=== PATIENT | female | born 1940 | race Caucasian/White ===

== ENCOUNTER 2016-05-25 14:15 | Outpatient (CLI) | payer MEDICARE, OTHER | END 2016-05-25 14:16 | disposition home or self-care (01) | DX: D50.9 Iron deficiency anemia, unspecified (principal) ==

== ENCOUNTER 2016-12-30 05:22 | Outpatient (CLI) | payer MEDICARE, OTHER | END 2016-12-30 05:23 | disposition critical access hospital (66) | LOC: EMS 05:22 | PROVIDERS: ATTEND Surgery | DX: R10.9 Unspecified abdominal pain (principal) | CPT/HCPCS: A0425; A0427 ==

== ENCOUNTER 2016-12-30 05:39 | Inpatient (IN) | payer MEDICARE, OTHER ==
[2016-12-30] MEDS ORDERED: SODIUM CHLORIDE FLUSH 0.9% 10 ML SYRINGE IVP ONE (05:50)
--- NOTE | 2016-12-30 06:00 | ED Physician Documentation ---
PD HPI ABD PAIN - Stated complaint Stated Complaint: ABD PAIN - Chief complaint Chief Complaint: Abd Pain - History obtained from History obtained from: Patient, EMS - History of Present Illness Timing - onset: Enter time (0900), Yesterday Timing - duration: Days (1) Timing - details: Abrupt onset, Still present Quality: Sharp, Pain Location: Epigastric Improved by: Laying still Associated symptoms: Nausea, Vomiting. No: Fever, Diarrhea, Constipation, Chest pain, Dizzy Similar symptoms before: Has not had sx before Recently seen: Other (The patient has had a recent home health visit and she has had a recent CT chest, abd and head for survelance.) - Additional information Additional information: 76-year-old female with history of atrial fibrillation on Coumadin and a history of angiosarcoma of the scalp has Developed acute abdominal pain nausea and vomiting beginning at 9 AM yesterday morning. She felt she ate some grapes that were unwashed and was concerned that might be the cause of her symptoms. She felt she might have food poisoning but the symptoms have not resolved. Pain is primary complaint. She denies the use of ibuprofen or Aleve and states that she drinks only rarely and not recently. Review of Systems Constitutional: reports: Chills, Sweats. denies: Fever, Myalgias Eyes: denies: Decreased vision Ears: denies: Ear pain Nose: denies: Rhinorrhea / runny nose, Congestion Throat: denies: Sore throat Cardiac: denies: Chest pain / pressure, Palpitations Respiratory: reports: Cough (post nasal drip). denies: Dyspnea GI: reports: Abdominal Pain, Nausea, Vomiting (once), Diarrhea (yesterday X 1) : denies: Dysuria, Frequency, Incontinent Skin: denies: Rash, Lesions Musculoskeletal: denies: Neck pain, Back pain, Extremity pain Neurologic: reports: Generalized weakness. denies: Focal weakness, Numbness PD PAST MEDICAL HISTORY - Present Medications Home Medications: Ambulatory Orders Medication Instructions Recorded Confirmed Albuterol Sulfate [Proair Hfa 2 puffs ORAL Q4HR PRN 12/04/16 12/30/16 Inhaler] Atenolol 25 mg PO BID 12/04/16 12/04/16 Cholecalciferol (Vitamin D3) 1 tab ORAL DAILY 12/04/16 12/30/16 [Vitamin D3] Furosemide 40 mg PO DAILY 12/04/16 12/04/16 Iron,Carbonyl [Iron Chews] 15 mg PO BID 12/04/16 12/30/16 Levothyroxine [Synthroid] 125 mcg PO QDAC 12/04/16 12/30/16 Lisinopril 1 tab ORAL DAILY 12/04/16 12/04/16 Nitroglycerin 1 tab ORAL PRN PRN 12/04/16 12/30/16 Potassium Chloride [Klor-Con 10] 1 tab ORAL DAILY 12/04/16 12/30/16 amLODIPine [Norvasc] 2 tab ORAL DAILY 12/04/16 12/30/16 oxyCODONE [Roxicodone] 10 mg PO Q6HR PRN 12/04/16 12/30/16 - Allergies Allergies/Adverse Reactions: Allergies Allergy/AdvReac Type Severity Reaction Status Date / Time acetaminophen [From Percocet] Allergy Hives Verified 12/30/16 06:00 aspirin Allergy Hives Verified 12/30/16 06:00 PD ED PE NORMAL - Vitals Vital signs reviewed: Yes (hypertensive) - General General: No acute distress, Well developed/nourished - HEENT HEENT: PERRL, EOMI, Other (The head is covered by guaze bandaging. ) - Neck Neck: Supple, no meningeal sign, No bony TTP - Cardiac Cardiac: Other (irregularly irregular with 2/6 holosystolic murmer at LSB) - Respiratory Respiratory: No respiratory distress, Other (rhonchi in the right base. ) - Abdomen Abdomen: Soft, Other (mild epigastric tenderness. ) - Back Back: No CVA TTP, No spinal TTP - Derm Derm: Normal color, No rash - Extremities Extremities: No deformity, No edema - Neuro Neuro: Alert and oriented X 3, movie editor 2-12 intact, No motor deficit, No sensory deficit, Normal speech - Psych Psych: Normal mood, Normal affect Results - Vitals Vitals: Vital Signs - 24 hr 12/30/16 05:43 Temperature 36.4 C L Heart Rate 97 Respiratory 16 Rate Blood Pressure 149/69 H O2 Saturation 100 Oxygen O2 Source Room air - EKG (time done) 0626 Rate: Rate (enter#) (100) Rhythm: Atrial fibrillation, Other (PVC's) Intervals: RBBB (incomplete) Ischemia: ST depression Compare to prior EKG: Old EKG unavailable Computer interpretation: Agree with computer - Labs Labs: Laboratory Tests 12/30/16 12/30/16 12/30/16 06:20 06:52 06:52 WBC 19.0 H RBC 4.22 Hgb 12.7 Hct 38.9 MCV 92.0 MCH 30.0 MCHC 32.6 RDW 15.4 H Plt Count 303 MPV 7.1 L PT 12.9 H INR 1.1 Sodium Potassium Chloride Carbon Dioxide Anion Gap BUN Creatinine Estimated GFR (MDRD) Glucose Calcium Total Bilirubin AST ALT Alkaline Phosphatase Troponin I Total Protein Albumin Globulin Albumin/Globulin Ratio Lipase Urine Color YELLOW Urine Clarity CLEAR Urine pH 5.5 Ur Specific Dolph 1.025 Urine Protein TRACE Urine Glucose (UA) >=1000 H Urine Ketones 15 H Urine Occult Blood SMALL H Urine Nitrite NEGATIVE Urine Bilirubin NEGATIVE Urine Urobilinogen 0.2 (NORMAL) Ur Leukocyte Esterase NEGATIVE Urine RBC 0-5 Urine WBC 0-3 Ur Squamous Epith Cells MOD Squamous H Urine Bacteria Few Ur Microscopic Review INDICATED Urine Culture Comments NOT INDICATED 12/30/16 12/30/16 06:52 06:52 WBC RBC Hgb Hct MCV MCH MCHC RDW Plt Count MPV PT INR Sodium 139 Potassium 2.9 L Chloride 105 Carbon Dioxide 19 L Anion Gap 15.0 H BUN 16 Creatinine 0.9 Estimated GFR (MDRD) 61 L Glucose 293 H Calcium 9.9 Total Bilirubin 0.7 AST 33 ALT 14 Alkaline Phosphatase 61 Troponin I < 0.04 Total Protein 8.6 H Albumin 5.1 Globulin 3.5 Albumin/Globulin Ratio 1.5 Lipase 24 Urine Color Urine Clarity Urine pH Ur Specific Dolph Urine Protein Urine Glucose (UA) Urine Ketones Urine Occult Blood Urine Nitrite Urine Bilirubin Urine Urobilinogen Ur Leukocyte Esterase Urine RBC Urine WBC Ur Squamous Epith Cells Urine Bacteria Ur Microscopic Review Urine Culture Comments Procedures - IVC sono (time) 0720 Bedside IVC sono: IVC measures (cm) (1.60), Euvolemia PD MEDICAL DECISION MAKING - ED course Complexity details: reviewed old records, reviewed results, re-evaluated patient , considered differential, d/w patient ED course: 76 y/o female with a history of angiosarcoma of the scalp has developed epigastric abdominal pain without tenderness. She was administered a GI cocktail without relief. She has rhonchi on exam and CXR confirms infiltrate in the right base that was not present on a CT done last month. She has had chills and sweats, has elevated WBC but is not hypoxic. She does have the abdominal pain and this is a 9/10. She is also hypokalemic and admission for treatment is prudent. The hospitalist is consulted in the case. Departure - Departure Disposition: 66 [facility] DC/Xfer Clinical Impression: Hypokalemia Abdominal pain Qualifiers: Abdominal location: epigastric Qualified Code(s): R10.13 - Epigastric pain Pneumonia Qualifiers: Pneumonia type: due to unspecified organism Laterality: right Lung location: lower lobe of lung Qualified Code(s): J18.1 - Lobar pneumonia, unspecified organism Condition: Stable
[2016-12-30] MEDS ORDERED: LIDOCAINE VISCOUS 2% 15 ML UDC MM STA (06:04)
[2016-12-30] MEDS ORDERED: MAG HYDROX/AL HYDROX/SIMETH 30 ML UDC PO STA (06:04)
[2016-12-30] MEDS ORDERED: LIDOCAINE VISCOUS 2% 15 ML UDC MM ONE (06:22)
[2016-12-30] MEDS ORDERED: MAG HYDROX/AL HYDROX/SIMETH 30 ML UDC ONE (06:23)
[2016-12-30 07:02] LABS: BILIRUBIN,URINE NEGATIVE (NEGATIVE); PH,URINE 5.5 PH (5.0-7.5)
[2016-12-30 07:04] LABS: BASOPHILS # (AUTO) 0.1 10^3/uL (0.0-0.1); BASOPHILS % (AUTO) 0.3 %; HCT - HEMATOCRIT 38.9 % (37.0-47.0); HGB - HEMOGLOBIN 12.7 g/dL (12.0-16.0); LYMPHOCYTES # (AUTO) 0.4 10^3/uL (1.5-3.5); LYMPHOCYTES % (AUTO) 2.1 %; MEAN CORPUSCULAR HGB CONC 32.6 g/dL (32.0-36.0); MEAN PLATELET VOLUME 7.1 fL (7.9-10.8); MONOCYTES # (AUTO) 0.7 10^3/uL (0.0-1.0); MONOCYTES % (AUTO) 3.8 %; NEUTROPHILS # (AUTO) 17.9 10^3/uL (1.5-6.6); NEUTROPHILS % (AUTO) 93.8 %; NUCLEATED RED BLOOD CELLS AUTO 0.1 /100WBC; RED BLOOD COUNT 4.22 10^6/uL (4.20-5.40); RED CELL DISTRIBUTION WIDTH 15.4 % (12.0-15.0)
[2016-12-30 07:05] LABS: UA w/ MICROSCOPIC CHARGE YES
[2016-12-30 07:07] LABS: INR 1.1 (0.8-1.2); PT - PROTHROMBIN TIME 12.9 secs (9.9-12.6)
[2016-12-30 07:09] LABS: UR CULTURE IF IND NOT INDICATED; WBC,URINE 0-3 /HPF (0-5)
[2016-12-30 07:14] LABS: ALBUMIN/GLOBULIN RATIO 1.5 (1.0-2.2); BILIRUBIN,TOTAL 0.7 mg/dL (0.2-1.0); CALCIUM 9.9 mg/dL (8.5-10.3); CREATININE 0.9 mg/dL (0.4-1.0); POTASSIUM 2.9 mmol/L (3.5-5.0); TOTAL PROTEIN 8.6 g/dL (6.7-8.2)
[2016-12-30] MEDS ORDERED: POTASSIUM CHLOR 10 MEQ/100 ML 100 ML IV ONE ×2 (07:16→07:37)
[2016-12-30] MEDS ORDERED: POTASSIUM BICARB 25 MEQ TABLET PO STA (07:16)
[2016-12-30] MEDS ORDERED: POTASSIUM BICARB 25 MEQ TABLET PO ONE (07:27)
[2016-12-30 07:29] LABS: NP AUTO DIFFERENTIAL? NO; NP MAN DIFFERENTIAL? YES
[2016-12-30] MEDS ORDERED: oxyCODONE 5 MG TABLET PO STA (07:29)
[2016-12-30 07:31] LABS: PLATELET ESTIMATE, MANUAL NORMAL (130-450,000) (NORMAL); PLATELET MORPHOLOGY NORMAL APPEARANCE (NORMAL)
[2016-12-30] MEDS ORDERED: oxyCODONE 5 MG TABLET ONE (07:35)
--- NOTE | 2016-12-30 07:43 | XRAY Preliminary Report ---
Exam: XR Chest 2 View PA/LAT IMPRESSION: Small right basilar airspace disease may be due to atelectasis, aspiration, and/or pneumo efra. Small right-sided pleural effusion. [facility] SITE ID: [id number]
--- NOTE | 2016-12-30 07:46 | XRAY Report ---
EXAM: CHEST RADIOGRAPHY EXAM DATE: 12/30/2016 07:18 AM. CLINICAL HISTORY: No right-sided abnormal breath sounds. COMPARISON: CT abdomen and pelvis 11/22/2016 TECHNIQUE: 2 views. FINDINGS: Lungs/Pleura: There is small right basilar airspace disease. There is a small right-sided pleural eff usion. Left lung base pleural thickening and scarring is again noted. Nonspecific mild bilateral apic al pleural thickening/scarring, left greater than right. Mediastinum: At least mild enlargement of the cardiac silhouette. Other: There is degenerative change about the shoulder bilaterally. Prior median sternotomy. IMPRESSION: Small right basilar airspace disease may be due to atelectasis, aspiration, and/or pneumo efra. Small right-sided pleural effusion. [facility] Referring Provider Line: [phone] SITE ID: [id number]
[2016-12-30] MEDS ORDERED: MORPHINE 2 MG/ML CARPUJECT IVP PRN (09:08)
[2016-12-30] MEDS ORDERED: ZOLPIDEM 5 MG TABLET PO PRN (09:08)
[2016-12-30] MEDS ORDERED: SODIUM CHLORIDE 0.9% 500 ML IV ONE (09:30)
[2016-12-30 09:43] LABS: HEMOGLOBIN A1C 0.57 g/dL
[2016-12-30] MEDS ORDERED: NS W/20 MEQ KCL 1,000 ML IV SCH ×2 (10:00→12:00)
[2016-12-30] MEDS ORDERED: cefTRIAXone 1 GM VIAL IVP SCH (10:00)
[2016-12-30] MEDS ORDERED: ENOXAPARIN 40 MG/0.4 ML SYRINGE SUBQ SCH (10:00)
[2016-12-30] MEDS ORDERED: SODIUM CHLORIDE 0.9% 1,000 ML IV SCH (10:00)
[2016-12-30] MEDS ORDERED: AZITHROMYCIN INJ 500 MG in SODIUM CHLORIDE 0.9% 250 ML IV SCH (10:00)
[2016-12-30] MEDS ORDERED: IPRATROPIUM/ALBUTEROL 3 ML NEB INH PRN (11:00)
[2016-12-30 11:16] LABS: ABG ANALYSIS TIME 1105; ABG BASE EXCESS -5.3 mmol/L (-2.0-3.0); ABG HCO3 19.1 mmol/L (22.0-26.0); ABG OXYGEN SATURATION 97 % (94-98); ABG PCO2 34 mmHg (34-45); ABG PH 7.37 (7.35-7.45); ABG PO2 87 mmHg (80-100); ABG TCO2 20.2 MMOL/L (21.0-29.0); ALLEN TEST POSITIVE
[2016-12-30 11:17] LABS: ABG ROOM AIR YES; ABG SATURATION PULSE OXIMETRY% 99 %
[2016-12-30] MEDS ORDERED: HYDROmorphone 1 MG/ML SYRINGE IVP PRN (11:26)
--- NOTE | 2016-12-30 11:35 | HISTORY & PHYSICAL EXAMINATION ---
Chief Complaint - Chief Complaint Chief Complaint: abdominal pain History of Present Illness - Admitted From Admitted From:: emergence room - History Obtained From History obtained from: patient - History of Present Illness HPI Comment/Other: This is a 76-year-old female with significant past medical history of angiosarcoma of the scalp, hypothyroidism, hypertension, CHF, Afib without Coumadin for two years per patient reports, who present emergence room for evaluation of epigastric abdominal pain. Patient state she has been epigastric abdominal pain for about 4 days, and gradually the pain became worsening. Patient also report she had one episode of nausea and vomiting. She denies hematemesis. She report loose stool but no diarrhea. She report the epigastric pain does not radiate to other locations. The pain is sharp in the most time, at pain scale 8/10. Patient report she did not take Coumadin for about two years because Coumadin cause she had lots of bleeding at her surgery side on scalp. Patient also decline to have her Coumadin back to her medical regime at hospital now. She state she will discuss with her daughter, a nurse, for this. Patient had CT of abdomen about one month ago which reveals no significant acute finding. CXR reveals today patient had right lobe small pleural effusion and infiltrate or pneumonia. Lab test in ER today reveals patient's glucose is 290. Patient denies she has a history of DM. The following test reveal A1C 5.9. Patient has positive ketone at urine and potassium at 2.9, but negative ketone at serum. Patient has very high lactic acid 7.3 in serum. The following ABGs test reveals patient's PH is normal, but lactic acid test in the repeat at ABG is still 6.3. Patient took Lasix 40 mg at home. Patient just finish one cycle of radiation therapy for her Angiosarcoma per patient report. Patient denies chest pain, shortness of breathing, fever, chill, dysuria, hematuria, vision changing. patient is admitted for pneumonia and further evaluation of abdominal pain. Review of Systems - Constitutional Constitutional: denies: Fever, Chills, Poor appetite, Diaphoresis, Night sweats - Eyes Eyes: denies: Pain, Irritation, Amaurosis, Blurred vision, Spots in vision, Field loss, Vision loss, Dipolpia - Ears, Nose & Throat Ears, Nose & Throat: denies: Ear pain, Hearing loss, Hearing aids, Vertigo, Nasal pain, Nosebleeds, Nasal congestion, Sore throat, Mouth lesions - Cardiovascular Cariovascular: denies: Irregular heart rate, Palpitations, Chest pain, Lightheadedness, Syncope, Orthopnea - Respiratory Respiratory: denies: Cough, Sputum production, Wheezing, Hemoptysis, Orthopnea, SOB at rest, SOB with exertion, Apnea, Pleuritic pain - Gastrointestinal Gastrointestinal: reports: Abdominal pain, Change in bowel habits, Nausea, Vomiting. denies: Abdominal distention, Constipation, Diarrhea, Rectal bleeding , Black stools, Bloody stools, Moncho blood emesis, Coffee grounds emesis, Reflux /heartburn - Genitourinary Genitourinary: denies: Dysuria, Frequency, Urgency, Hematuria, Incontinence, Flank pain, Nocturia - Musculoskeletal Musculoskeletal: denies: Muscle pain, Back pain, Muscle aches, Stiffness, Limited range of motion, Muscle weakness, Gout, Joint pain - Integumentary Integumentary: denies: Rash, Pruritis, Lesions, Dryness - Neurological Neurological: denies: General weakness, Focal weakness, Headache, Dizziness, Numbness, Abnormal gait, Seizures, Incoordination, Slurred speech - Psychiatric Psychiatric: denies: Depression, Anxiety, Suicidal, Delusions, Hallucinations, Homicidal - Endocrine Endocrine: denies: Polyuria, Polydypsia, Polyphagia, Intolerance to cold - Hematologic/Lymphatic Hematologic/Lymphatic: denies: Anemia, Petechiae, Lymphadenopathy, Bleeding tendencies, Recurrent infections History - Past Medical History Cardiovascular: reports: Congestive heart failure, Hypertension Respiratory: reports: COPD Endocrine/Autoimmune: reports: HyPOthyroidism Derm: reports: Other MRSA Hx?: No Other Past Medical History: Skin cancer, thyroid cancer - Past Surgical History General: reports: Cholecystectomy Ortho: reports: Knee replacement Cardiovascular: reports: CABG Neuro: reports: Other - Family & Social History Living arrangement: At home Living Situation: Alone - Substance History Use: Uses substance without health or social issues: NONE Abuse: Recurrent use of substance despite neg consequences: NONE Dependence: Experiences withdrawal or developed tolerances: NONE - POLST POLST Status: Full Code Meds/Allgy - Home Medications Home Medications: Ambulatory Orders Medication Instructions Recorded Confirmed Albuterol Sulfate [Proair Hfa 2 puffs ORAL Q4HR PRN 12/04/16 12/30/16 Inhaler] Atenolol 25 mg PO BID 12/04/16 12/04/16 Cholecalciferol (Vitamin D3) 1 tab ORAL DAILY 12/04/16 12/30/16 [Vitamin D3] Furosemide 40 mg PO DAILY 12/04/16 12/04/16 Iron,Carbonyl [Iron Chews] 15 mg PO BID 12/04/16 12/30/16 Levothyroxine [Synthroid] 125 mcg PO QDAC 12/04/16 12/30/16 Lisinopril 1 tab ORAL DAILY 12/04/16 12/04/16 Nitroglycerin 1 tab ORAL PRN PRN 12/04/16 12/30/16 Potassium Chloride [Klor-Con 10] 1 tab ORAL DAILY 12/04/16 12/30/16 amLODIPine [Norvasc] 2 tab ORAL DAILY 12/04/16 12/30/16 oxyCODONE [Roxicodone] 5 - 10 mg PO Q4H PRN 12/04/16 12/30/16 - Allergies Allergies/Adverse Reactions: Allergies Allergy/AdvReac Type Severity Reaction Status Date / Time acetaminophen [From Percocet] Allergy Hives Verified 12/30/16 06:00 aspirin Allergy Hives Verified 12/30/16 06:00 Exam - Vital Signs Reviewed Vital Signs: Yes Vital Signs: Vital Signs x48h Temp Pulse Pulse Resp BP Pulse Ox 12/30/16 10:50 144 H 16 12/30/16 10:15 35.6 C L 95 18 149/77 H 98 - Physical Exam General Appearance: positive: No acute distress, Alert, Mild distress. negative : Lethargic Eyes Bilateral: positive: Normal inspection, PERRL, EOMI. negative: No lid inflammation, Conjunctivae nml ENT: positive: ENT inspection nml, Pharynx nml, No signs of dehydration. negative: Purulent nasal drainage, Pharyngeal erythema Neck: positive: Nml inspection, Thyroid nml, No JVD, Trachea midline. negative : Lymphadenopathy (R), Lymphadenopathy (L), Stiff neck, Swelling/bruising, Tracheal deviation Respiratory: positive: Chest non-tender, No respiratory distress, Other (mild diminished lung soud at right lower lobe). negative: Wheezes, Rales Cardiovascular: positive: Regular rate & rhythm, No murmur, No gallop. negative : Tachycardia, Bradycardia, Systolic murmur, Diastolic murmur Peripheral Pulses: positive: 2+ Abdomen: positive: Non-tender, No organomegaly, Nml bowel sounds, No distention , Other (pain at deep palpatition on epigastric area). negative: Tenderness, Guarding, Rebound Back: positive: Nml inspection. negative: CVA tenderness (R), CVA tenderness (L ) Skin: positive: Color nml, No rash, Warm, Dry, Puncture wound (on top of her scalp). negative: Diaphoresis, Skin rash Extremities: positive: Non-tender, Full ROM, Nml appearance. negative: Calf tenderness, Rigoberto's sign/cords Neurologic/Psychiatric: positive: Oriented x3, Sensation nml, Mood/affect nml. negative: Sensory loss, Facial droop, Slurred/abnml speech, Depressed mood/ affect Conclusion/Plan - Problem List (1) Abdominal pain Conclusion/Plan: about one month ago CT of abdomen is negative for acute finding. Pt has history of angiosarcoma under the radiation treatment CT of abdomen with contrast pain control protonix IV bid Qualifiers: Abdominal location: epigastric Qualified Code(s): R10.13 - Epigastric pain (2) Elevated lactic acid level Conclusion/Plan: pt take lasix 40 mg daily at home for CHF fluid overload, and pt is treated with radiation therapy for her angiosarcom, pt has pneumonia. pt had significant elevation of lactic acid level and high Anion gap, but ABGs PH is normal, ketone is negative, A1C normal, no history of DM. Study show lasix can increase lactic acid level mild to moderate IVF, and monitor BNP at the same time tele, vital, clinic closely monitor recheck lactic acid, possible ABGs if needed (3) Surgical wound, non healing Conclusion/Plan: at the top of head from angiosarcoma removal surgery. consult wound care, follow up recommendation, dressing changing. pt is under care of home nurse, dressing changing (4) Hypokalemia Conclusion/Plan: K=2.9 at ER, replace of potassium, check daily lab (5) Pneumonia Conclusion/Plan: treat with CAP from home, rocephin and azithyomycin Duoneb PRN, consult with RT Qualifiers: Pneumonia type: due to unspecified organism Laterality: right Lung location: lower lobe of lung Qualified Code(s): J18.1 - Lobar pneumonia, unspecified organism (6) CHF (congestive heart failure) Conclusion/Plan: CXR reveals mild cardiomegaly, check BNP. hold Lasix for high lactic acid for now. pt denies chest pain, SOB. Mild fluid for high lactic acid, anion gap (7) HTN (hypertension) Conclusion/Plan: it appear stable, will resume home BP meds after reconciliation of home meds (8) Hypothyroid Conclusion/Plan: resume home meds, check TSH - Lab Results Fish Bones: 12/30/16 06:52 12/30/16 06:52 Issues/Core Measures - Anticipated LOS Anticipated Stay Length: 2 or more midnights - Issues Hospital Issues and Management Plan: lovenex for DVT prophylaxis - DVT/VTE - Prophylaxis VTE/DVT Device ordered at admit?: Yes
[2016-12-30] MEDS ORDERED: HYDROmorphone 1 MG/ML SYRINGE ONE (11:37)
[2016-12-30] MEDS ORDERED: NITROGLYCERIN SL 0.4 MG TABLET SL PRN (11:50)
[2016-12-30] MEDS: oxyCODONE 5 MG TABLET PO PRN ×3 (11:51→23:53)
[2016-12-30] MEDS ORDERED: IOPAMIDOL-300 100 ML VIAL IVP ONE (12:23)
[2016-12-30] MEDS ORDERED: ALBUTEROL NEB 2.5 MG/3 ML INH PRN (12:52)
[2016-12-30] MEDS: CHOLECALCIFEROL 1,000 UNIT TABLET PO SCH (13:21)
[2016-12-30] MEDS: ATENOLOL 25 MG TABLET PO SCH ×2 (13:21→21:02)
[2016-12-30] MEDS: POTASSIUM CHLORIDE 10 MEQ CAPSULE PO SCH (13:21)
[2016-12-30] MEDS: SODIUM CHLORIDE FLUSH 0.9% 10 ML SYRINGE IVP SCH ×2 (13:22→15:43)
[2016-12-30] MEDS: LEVOTHYROXINE 125 MCG TABLET PO SCH (13:22)
[2016-12-30] MEDS: HYDROmorphone 1 MG/ML SYRINGE IVP PRN ×2 (13:37→15:43)
[2016-12-30] MEDS: PANTOPRAZOLE 40 MG VIAL IVP SCH (15:43)
--- NOTE | 2016-12-30 17:22 | CT Preliminary Report ---
Exam: CT Abdomen/Pelvis W/ IMPRESSION: Moderate diverticulosis of the distal left and sigmoid colon without inflammatory change. No demonstrated cholelithiasis persistent pain. Remainder of the abdomen and pelvis shows no acute pr ocess or substantial change from prior study of November 2016. [facility] SITE ID: [id number]
--- NOTE | 2016-12-30 17:25 | CT Report ---
EXAM: CT ABDOMEN AND PELVIS WITH CONTRAST EXAM DATE: 12/30/2016 12:23 PM. CLINICAL HISTORY: Persisting abdominal pain in a 76-year-old female. COMPARISONS: Chest, abdomen and pelvic CT of 11/22/2016. TECHNIQUE: Routine helical CT imaging was performed through the abdomen and pelvis. IV contrast: 100 mL Isovue-300. Enteric contrast: None. Reconstructions: Coronal and sagittal. In accordance with CT protocol optimization, one or more of the following dose reduction techniques w ere utilized for this exam: automated exposure control, adjustment of mA and/or KV based on patient s ize, or use of iterative reconstructive technique. FINDINGS: Lung Bases: Small to moderate right pleural effusion, new from prior study. Calcific pleural plaque r ight lung base medially, stable. Heart size moderately enlarged, as previously. Liver: Normal. No masses. Gallbladder/Bile Ducts: Surgically absent. No dilated bile ducts. Spleen: Normal size and contour without mass or cyst. A few small punctate calcifications consistent with minimal old granulomatous disease, stable. Pancreas: Moderate atrophy, as previously. No mass or cyst. No dilatation of the pancreatic duct. Adrenal Glands: Normal. Kidneys: Mild to moderate left renal cortical atrophy, as previously with probable mild compensatory hypertrophy right kidney. Benign appearing peripelvic cysts right kidney, stable. No nephrolithiasis or hydronephrosis bilaterally. Ureters are of normal course and caliber. Peritoneal Cavity/Bowel: Moderate diverticulosis of the distal left and sigmoid colon without definit e inflammatory change. No free fluid, free air or adenopathy. No masses or acute inflammatory process . The appendix is well visualized and normal. Pelvic Organs: Normal. The bladder and visualized pelvic organs are within normal limits. Vasculature: No aneurysms or other significant abnormality. Bones: Unremarkable for age. No acute process or metastatic disease. Other: None. IMPRESSION: Moderate diverticulosis of the distal left and sigmoid colon without inflammatory change. No demonstrated cholelithiasis persistent pain. Remainder of the abdomen and pelvis shows no acute pr ocess or substantial change from prior study of November 2016. [facility] Referring Provider Line: [phone] SITE ID: [id number]
--- NOTE | 2016-12-30 18:50 | XRAY Preliminary Report ---
Exam: XR Chest 1 View IMPRESSION: 1. Cardiomegaly with pulmonary cephalization and trace bilateral pleural effusions. No focal consolid ation. [facility] SITE ID: [id number]
--- NOTE | 2016-12-30 18:53 | XRAY Report ---
EXAM: CHEST RADIOGRAPHY EXAM DATE: 12/30/2016 06:31 PM. CLINICAL HISTORY: Check aspiration, patient choked when she ate dinner. COMPARISON: Chest x-ray 12/30/2016 at 0709. TECHNIQUE: 1 view. FINDINGS: Lungs/Pleura: Trace bilateral pleural effusions with pulmonary cephalization. Mediastinum: Cardiomegaly with atherosclerotic calcification. Status post median sternotomy. Other: Old right-sided rib fractures. IMPRESSION: 1. Cardiomegaly with pulmonary cephalization and trace bilateral pleural effusions. No focal consolid ation. [facility] Referring Provider Line: [phone] SITE ID: [id number]
[2016-12-30] MEDS ORDERED: ONDANSETRON 4 MG/2 ML VIAL IVP PRN (21:12)
[2016-12-30] MEDS: ONDANSETRON 4 MG/2 ML VIAL IVP PRN (23:13)
[2016-12-30] MEDS: SODIUM CHLORIDE FLUSH 0.9% 10 ML SYRINGE IVP PRN (23:14)
[2016-12-31 05:10] LABS: BASOPHILS % (AUTO) 0.4 %; EOSINOPHILS % (AUTO) 0.1 %; HCT - HEMATOCRIT 36.1 % (37.0-47.0); HGB - HEMOGLOBIN 11.8 g/dL (12.0-16.0); MEAN CORPUSCULAR HEMOGLOBIN 30.2 pg (27.0-31.0); MEAN CORPUSCULAR HGB CONC 32.8 g/dL (32.0-36.0); MEAN CORPUSCULAR VOLUME 92.1 fL (81.0-99.0); MEAN PLATELET VOLUME 7.2 fL (7.9-10.8); MONOCYTES # (AUTO) 0.8 10^3/uL (0.0-1.0); MONOCYTES % (AUTO) 6.3 %; NEUTROPHILS # (AUTO) 10.8 10^3/uL (1.5-6.6); NEUTROPHILS % (AUTO) 85.2 %; RED BLOOD COUNT 3.92 10^6/uL (4.20-5.40); RED CELL DISTRIBUTION WIDTH 15.3 % (12.0-15.0); UNCORRECTED WHITE BLOOD COUNT 12.7 x10^3/uL; WHITE BLOOD COUNT 12.7 x10^3/uL (4.8-10.8)
[2016-12-31 05:22] LABS: ALBUMIN/GLOBULIN RATIO 1.2 (1.0-2.2); BILIRUBIN,TOTAL 0.8 mg/dL (0.2-1.0); CALCIUM 9.3 mg/dL (8.5-10.3); CREATININE 0.7 mg/dL (0.4-1.0); MAGNESIUM 2.3 mg/dL (1.7-2.8); POTASSIUM 4.6 mmol/L (3.5-5.0); TOTAL PROTEIN 6.8 g/dL (6.7-8.2)
[2016-12-31] MEDS: SODIUM CHLORIDE FLUSH 0.9% 10 ML SYRINGE IVP PRN (06:15)
[2016-12-31] MEDS: SODIUM CHLORIDE FLUSH 0.9% 10 ML SYRINGE IVP SCH ×3 (06:15→17:11)
[2016-12-31] MEDS: LEVOTHYROXINE 125 MCG TABLET PO SCH (06:16)
[2016-12-31] MEDS: PANTOPRAZOLE 40 MG VIAL IVP SCH ×2 (06:16→17:08)
--- NOTE | 2016-12-31 08:14 | PROVIDER PROGRESS NOTE ---
Subjective - Subjective Pt reports feeling: Improved Subjective: I just call wound child care development specialist, she will see and evaluation to pt. pt report Objective - Vital Signs/Intake & Output Vital Signs: Vital Signs x48h Temp Pulse Pulse Resp BP Pulse Ox 12/31/16 08:00 66 18 12/31/16 07:49 36.9 C 68 18 139/73 H 93 12/31/16 04:13 36.4 C L 65 20 150/73 H 94 Intake & Output: Intake & Output 12/28/16 12/29/16 12/30/16 12/31/16 23:59 23:59 23:59 23:59 Intake Total 2147 617 Output Total 151 1 Balance 1995 616 - Lab Results Fish Bones: 12/31/16 05:00 12/31/16 05:00 Other Labs: Lab Results x24hrs 12/31/16 12/31/16 12/31/16 Range/Units 05:00 05:00 05:00 WBC (4.8-10.8) x10^3/uL RBC (4.20-5.40) 10^6/uL Hgb (12.0-16.0) g/dL Hct (37.0-47.0) % MCV (81.0-99.0) fL MCH (27.0-31.0) pg MCHC (32.0-36.0) g/dL RDW (12.0-15.0) % Plt Count (130-450) 10^3/uL MPV (7.9-10.8) fL Neut # (1.5-6.6) 10^3/uL Lymph # (1.5-3.5) 10^3/uL [place] # (0.0-1.0) 10^3/uL Eos # (0.0-0.7) 10^3/uL Baso # (0.0-0.1) 10^3/uL Absolute Nucleated RBC x10^3/uL Nucleated RBCs /100WBC Bld Gas Analysis Time ABG pH (7.35-7.45) ABG pCO2 (34-45) mmHg ABG pO2 (80-100) mmHg ABG HCO3 (22.0-26.0) mmol/L ABG Total CO2 (21.0-29.0) MMOL/L ABG O2 Saturation (94-98) % ABG Oximetry Spot Check % ABG Base Excess (-2.0-3.0) mmol/L Ramon Test Room Air Sodium 136 (135-145) mmol/L Potassium 4.6 (3.5-5.0) mmol/L Chloride 105 (101-111) mmol/L Carbon Dioxide 25 (21-32) mmol/L Anion Gap 6.0 (6-13) BUN 17 (6-20) mg/dL Creatinine 0.7 (0.4-1.0) mg/dL Estimated GFR (MDRD) 81 L (>89) Glucose 135 H (70-100) mg/dL Lactic Acid 1.2 (0.5-2.2) mmol/L Calcium 9.3 (8.5-10.3) mg/dL Magnesium 2.3 (1.7-2.8) mg/dL Total Bilirubin 0.8 (0.2-1.0) mg/dL AST 17 (10-42) IU/L ALT 11 (10-60) IU/L Alkaline Phosphatase 49 (42-121) IU/L B-Natriuretic Peptide 404 H (5-100) pg/mL Total Protein 6.8 (6.7-8.2) g/dL Albumin 3.7 (3.2-5.5) g/dL Globulin 3.1 (2.1-4.2) g/dL Albumin/Globulin Ratio 1.2 (1.0-2.2) TSH (0.34-5.60) uIU/mL 12/31/16 12/31/16 12/30/16 Range/Units 05:00 05:00 11:05 WBC 12.7 H (4.8-10.8) x10^3/uL RBC 3.92 L (4.20-5.40) 10^6/uL Hgb 11.8 L (12.0-16.0) g/dL Hct 36.1 L (37.0-47.0) % MCV 92.1 (81.0-99.0) fL MCH 30.2 (27.0-31.0) pg MCHC 32.8 (32.0-36.0) g/dL RDW 15.3 H (12.0-15.0) % Plt Count 252 (130-450) 10^3/uL MPV 7.2 L (7.9-10.8) fL Neut # 10.8 H (1.5-6.6) 10^3/uL Lymph # 1.0 L (1.5-3.5) 10^3/uL [place] # 0.8 (0.0-1.0) 10^3/uL Eos # 0.0 (0.0-0.7) 10^3/uL Baso # 0.0 (0.0-0.1) 10^3/uL Absolute Nucleated RBC 0.00 x10^3/uL Nucleated RBCs 0.0 /100WBC Bld Gas Analysis Time 1105 ABG pH 7.37 (7.35-7.45) ABG pCO2 34 (34-45) mmHg ABG pO2 87 (80-100) mmHg ABG HCO3 19.1 L (22.0-26.0) mmol/L ABG Total CO2 20.2 L (21.0-29.0) MMOL/L ABG O2 Saturation 97 (94-98) % ABG Oximetry Spot Check 99 % ABG Base Excess -5.3 L (-2.0-3.0) mmol/L Ramon Test POSITIVE Room Air YES Sodium (135-145) mmol/L Potassium (3.5-5.0) mmol/L Chloride (101-111) mmol/L Carbon Dioxide (21-32) mmol/L Anion Gap (6-13) BUN (6-20) mg/dL Creatinine (0.4-1.0) mg/dL Estimated GFR (MDRD) (>89) Glucose (70-100) mg/dL Lactic Acid (0.5-2.2) mmol/L Calcium (8.5-10.3) mg/dL Magnesium (1.7-2.8) mg/dL Total Bilirubin (0.2-1.0) mg/dL AST (10-42) IU/L ALT (10-60) IU/L Alkaline Phosphatase (42-121) IU/L B-Natriuretic Peptide (5-100) pg/mL Total Protein (6.7-8.2) g/dL Albumin (3.2-5.5) g/dL Globulin (2.1-4.2) g/dL Albumin/Globulin Ratio (1.0-2.2) TSH 7.23 H (0.34-5.60) uIU/mL Assessment/Plan - Problem List (1) Abdominal pain Qualifiers: Abdominal location: epigastric Qualified Code(s): R10.13 - Epigastric pain (5) Pneumonia Qualifiers: Pneumonia type: due to unspecified organism Laterality: right Lung location: lower lobe of lung Qualified Code(s): J18.1 - Lobar pneumonia, unspecified organism
[2016-12-31] MEDS: POLYETHYLENE GLYCOL 3350 17 GM PACKET PO SCH (08:17)
[2016-12-31] MEDS ORDERED: ENOXAPARIN 40 MG/0.4 ML SYRINGE SUBQ SCH (09:00)
[2016-12-31] MEDS ORDERED: FUROSEMIDE 40 MG TABLET PO SCH (09:00)
[2016-12-31] MEDS: CHOLECALCIFEROL 1,000 UNIT TABLET PO SCH (09:57)
[2016-12-31] MEDS: AZITHROMYCIN 250 MG TABLET PO SCH (09:57)
[2016-12-31] MEDS: ATENOLOL 25 MG TABLET PO SCH ×2 (09:58→21:49)
[2016-12-31] MEDS: amLODIPine 5 MG TABLET PO SCH (09:58)
[2016-12-31] MEDS: POTASSIUM CHLORIDE 10 MEQ CAPSULE PO SCH (09:58)
[2016-12-31] MEDS: FUROSEMIDE 40 MG/4 ML VIAL IVP SCH (09:58)
[2016-12-31] MEDS ORDERED: cefTRIAXone 1 GM in SODIUM CHLORIDE 0.9% MINIBAG 100 ML IV SCH (10:00)
[2016-12-31] MEDS: oxyCODONE 5 MG TABLET PO PRN (10:09)
[2016-12-31] MEDS: ONDANSETRON 4 MG/2 ML VIAL IVP PRN (10:10)
--- NOTE | 2016-12-31 12:15 | PROVIDER PROGRESS NOTE ---
Subjective - Subjective Pt reports feeling: Improved Subjective: pt report her abdominal pain is better but still has some pain. I called Wound MAC marine consultant. She will see and evaluation to pt Current Medications - Current Medications Current Medications: Active Medications Albuterol () 2.5 mg INH RTQ4H PRN PRN Reason: Wheezing Albuterol/Ipratropium (Duoneb) 3 ml INH RTQ4H PRN PRN Reason: Wheezing Amlodipine Besylate (Norvasc) 10 mg PO DAILY [facility] Last Admin: 12/31/16 09:58 Dose: 10 mg Atenolol (Tenormin) 25 mg PO BID [facility] Last Admin: 12/31/16 09:58 Dose: 25 mg Azithromycin (Zithromax) 500 mg PO DAILY [facility] Last Admin: 12/31/16 09:57 Dose: 500 mg Cholecalciferol (Vitamin D3) 2,000 unit PO DAILY [facility] Last Admin: 12/31/16 09:57 Dose: 2,000 unit Furosemide (Lasix Inj 40 Mg Vial) 40 mg IVP DAILY [facility] Last Admin: 12/31/16 09:58 Dose: 40 mg Hydromorphone HCl (Dilaudid Inj) 1 mg IVP Q2HR PRN PRN Reason: PAIN Last Admin: 12/30/16 15:43 Dose: 1 mg Ceftriaxone Sodium 1 gm/ (Sodium Chloride) 100 mls @ 200 mls/hr IV DAILY@1000 [facility] Last Admin: 12/31/16 09:57 Dose: 200 mls/hr Levothyroxine Sodium (Synthroid) 125 mcg PO QDAC [facility] Last Admin: 12/31/16 06:16 Dose: 125 mcg Nitroglycerin (Nitrostat) 0.4 mg SL PRN PRN PRN Reason: Chest Pain Ondansetron HCl (Zofran Inj) 4 mg IVP Q6HR PRN PRN Reason: Nausea / Vomiting Last Admin: 12/31/16 10:10 Dose: 4 mg Ondansetron HCl (Zofran Inj) 4 mg IVP Q4HR PRN PRN Reason: Nausea / Vomiting Oxycodone HCl (Roxicodone) 10 mg PO Q6HR PRN PRN Reason: PAIN Last Admin: 12/31/16 10:09 Dose: 10 mg Pantoprazole Sodium (Protonix) 40 mg IVP BIDAC [facility] Last Admin: 12/31/16 06:16 Dose: 40 mg Polyethylene Glycol (Miralax) 17 gm PO DAILY [facility] Last Admin: 12/31/16 08:17 Dose: Not Given Potassium Chloride (Micro-K) 10 meq PO DAILYWM [facility] Last Admin: 12/31/16 09:58 Dose: 10 meq Sodium Chloride (Normal Saline Flush 0.9%) 10 ml IVP PRN PRN PRN Reason: NEEDED PER PROVIDER ORDERS Last Admin: 12/31/16 06:15 Dose: 10 ml Sodium Chloride (Normal Saline Flush 0.9%) 10 ml IVP Q8HR [facility] Last Admin: 12/31/16 06:15 Dose: 10 ml Zolpidem Tartrate (Ambien) 5 mg PO QPM PRN PRN Reason: Insomnia Last Admin: 12/30/16 23:13 Dose: 5 mg Albuterol Sulfate [Proair Hfa Inhaler] 2 puffs ORAL Q4HR PRN 12/04/16 Atenolol 25 mg PO BID 12/04/16 Cholecalciferol (Vitamin D3) [Vitamin D3] 1 tab ORAL DAILY 12/04/16 Furosemide 40 mg PO DAILY 12/04/16 Iron,Carbonyl [Iron Chews] 15 mg PO BID 12/04/16 Levothyroxine [Synthroid] 125 mcg PO QDAC 12/04/16 Lisinopril 1 tab ORAL DAILY 12/04/16 Nitroglycerin 1 tab ORAL PRN PRN 12/04/16 Potassium Chloride [Klor-Con 10] 1 tab ORAL DAILY 12/04/16 amLODIPine [Norvasc] 2 tab ORAL DAILY 12/04/16 oxyCODONE [Roxicodone] 5 - 10 mg PO Q4H PRN 12/04/16 Objective - Vital Signs/Intake & Output Vital Signs: Vital Signs x48h Temp Pulse Pulse Resp BP Pulse Ox 12/31/16 08:00 66 18 12/31/16 07:49 36.9 C 68 18 139/73 H 93 12/31/16 04:13 36.4 C L 65 20 150/73 H 94 Intake & Output: Intake & Output 12/28/16 12/29/16 12/30/16 12/31/16 23:59 23:59 23:59 23:59 Intake Total 2147 817 Output Total 151 1 Balance 1996 816 - Objective General Appearance: positive: No acute distress, Alert. negative: Lethargic Eyes Bilateral: positive: Normal inspection, PERRL. negative: No lid inflammation, Conjunctivae nml ENT: negative: ENT inspection nml, Pharynx nml, Purulent nasal drainage, Pharyngeal erythema Neck: positive: Nml inspection, Thyroid nml, Trachea midline. negative: Lymphadenopathy (R), Lymphadenopathy (L), Stiff neck Respiratory: positive: Chest non-tender, No respiratory distress, Breath sounds nml. negative: Wheezes, Rales Cardiovascular: positive: Regular rate & rhythm, No murmur, No gallop. negative : Tachycardia, Bradycardia, Systolic murmur, Diastolic murmur Peripheral Pulses: 2+ Radial (R), 2+ Radial (L), 2+ Dorsalis pedis (R), 2+ Dorsalis pedis (L) Abdomen: positive: Non-tender, Nml bowel sounds, No distention. negative: Tenderness, Guarding, Rebound Back: positive: Nml inspection. 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 negative: Diaphoresis Extremities: positive: Non-tender, Full ROM, Nml appearance. negative: Calf tenderness, Rigoberto's sign/cords Neurologic/Psychiatric: positive: Oriented x3, Motor nml, Sensation nml, Mood/ affect nml. negative: Sensory loss, Facial droop, Slurred/abnml speech, Depressed mood/affect - Lab Results Fish Bones: 12/31/16 05:00 12/31/16 05:00 Other Labs: Lab Results x24hrs 12/31/16 12/31/16 12/31/16 Range/Units 05:00 05:00 05:00 WBC (4.8-10.8) x10^3/uL RBC (4.20-5.40) 10^6/uL Hgb (12.0-16.0) g/dL Hct (37.0-47.0) % MCV (81.0-99.0) fL MCH (27.0-31.0) pg MCHC (32.0-36.0) g/dL RDW (12.0-15.0) % Plt Count (130-450) 10^3/uL MPV (7.9-10.8) fL Neut # (1.5-6.6) 10^3/uL Lymph # (1.5-3.5) 10^3/uL [place] # (0.0-1.0) 10^3/uL Eos # (0.0-0.7) 10^3/uL Baso # (0.0-0.1) 10^3/uL Absolute Nucleated RBC x10^3/uL Nucleated RBCs /100WBC Sodium 136 (135-145) mmol/L Potassium 4.6 (3.5-5.0) mmol/L Chloride 105 (101-111) mmol/L Carbon Dioxide 25 (21-32) mmol/L Anion Gap 6.0 (6-13) BUN 17 (6-20) mg/dL Creatinine 0.7 (0.4-1.0) mg/dL Estimated GFR (MDRD) 81 L (>89) Glucose 135 H (70-100) mg/dL Lactic Acid 1.2 (0.5-2.2) mmol/L Calcium 9.3 (8.5-10.3) mg/dL Magnesium 2.3 (1.7-2.8) mg/dL Total Bilirubin 0.8 (0.2-1.0) mg/dL AST 17 (10-42) IU/L ALT 11 (10-60) IU/L Alkaline Phosphatase 49 (42-121) IU/L B-Natriuretic Peptide 404 H (5-100) pg/mL Total Protein 6.8 (6.7-8.2) g/dL Albumin 3.7 (3.2-5.5) g/dL Globulin 3.1 (2.1-4.2) g/dL Albumin/Globulin Ratio 1.2 (1.0-2.2) TSH (0.34-5.60) uIU/mL 12/31/16 12/31/16 Range/Units 05:00 05:00 WBC 12.7 H (4.8-10.8) x10^3/uL RBC 3.92 L (4.20-5.40) 10^6/uL Hgb 11.8 L (12.0-16.0) g/dL Hct 36.1 L (37.0-47.0) % MCV 92.1 (81.0-99.0) fL MCH 30.2 (27.0-31.0) pg MCHC 32.8 (32.0-36.0) g/dL RDW 15.3 H (12.0-15.0) % Plt Count 252 (130-450) 10^3/uL MPV 7.2 L (7.9-10.8) fL Neut # 10.8 H (1.5-6.6) 10^3/uL Lymph # 1.0 L (1.5-3.5) 10^3/uL [place] # 0.8 (0.0-1.0) 10^3/uL Eos # 0.0 (0.0-0.7) 10^3/uL Baso # 0.0 (0.0-0.1) 10^3/uL Absolute Nucleated RBC 0.00 x10^3/uL Nucleated RBCs 0.0 /100WBC Sodium (135-145) mmol/L Potassium (3.5-5.0) mmol/L Chloride (101-111) mmol/L Carbon Dioxide (21-32) mmol/L Anion Gap (6-13) BUN (6-20) mg/dL Creatinine (0.4-1.0) mg/dL Estimated GFR (MDRD) (>89) Glucose (70-100) mg/dL Lactic Acid (0.5-2.2) mmol/L Calcium (8.5-10.3) mg/dL Magnesium (1.7-2.8) mg/dL Total Bilirubin (0.2-1.0) mg/dL AST (10-42) IU/L ALT (10-60) IU/L Alkaline Phosphatase (42-121) IU/L B-Natriuretic Peptide (5-100) pg/mL Total Protein (6.7-8.2) g/dL Albumin (3.2-5.5) g/dL Globulin (2.1-4.2) g/dL Albumin/Globulin Ratio (1.0-2.2) TSH 7.23 H (0.34-5.60) uIU/mL Assessment/Plan - Problem List (1) Abdominal pain Impression: CT of abdomen reveals no acute process from November of 2016. abdominal pain is in the control. No nausea or vomiting reported Qualifiers: Abdominal location: epigastric Qualified Code(s): R10.13 - Epigastric pain (2) Elevated lactic acid level Impression: today normal. resolved (3) Surgical wound, non healing Impression: wound MAC will see and evaluation of pt, will follow up the recommendation (4) Hypokalemia Impression: resolved (5) Pneumonia Impression: the latest CXR and CT of abdomen reveals significant improved, no focal consolidation, and WBC from 19 decreased significantly to 13. pt is clinic no fever, chill, cough, SOB. will reduce then stop antibiotics Qualifiers: Pneumonia type: due to unspecified organism Laterality: right Lung location: lower lobe of lung Qualified Code(s): J18.1 - Lobar pneumonia, unspecified organism (6) CHF (congestive heart failure) Impression: pt's BNP 404, no previous data compared with, history of CHF, on PO Lasix. will start IV Lasix close monitor electrolytic (7) HTN (hypertension) Impression: stable, continue the treatment (9) Pleural effusion Impression: small to moderate of pleural effusion, it appear cardiac-related, CHF Lasix IV closely monitor plan to D/C tomorrow, out-patient management
[2017-01-01] MEDS: oxyCODONE 5 MG TABLET PO PRN ×2 (04:27→11:31)
[2017-01-01 05:51] LABS: BASOPHILS % (AUTO) 0.4 %; EOSINOPHILS # (AUTO) 0.1 10^3/uL (0.0-0.7); EOSINOPHILS % (AUTO) 0.5 %; HCT - HEMATOCRIT 38.7 % (37.0-47.0); HGB - HEMOGLOBIN 12.8 g/dL (12.0-16.0); LYMPHOCYTES # (AUTO) 1.3 10^3/uL (1.5-3.5); MEAN CORPUSCULAR HEMOGLOBIN 30.4 pg (27.0-31.0); MEAN CORPUSCULAR HGB CONC 33.2 g/dL (32.0-36.0); MEAN CORPUSCULAR VOLUME 91.5 fL (81.0-99.0); MEAN PLATELET VOLUME 7.3 fL (7.9-10.8); MONOCYTES # (AUTO) 0.7 10^3/uL (0.0-1.0); MONOCYTES % (AUTO) 6.2 %; NEUTROPHILS # (AUTO) 9.5 10^3/uL (1.5-6.6); NEUTROPHILS % (AUTO) 81.9 %; RED BLOOD COUNT 4.23 10^6/uL (4.20-5.40); RED CELL DISTRIBUTION WIDTH 14.8 % (12.0-15.0); UNCORRECTED WHITE BLOOD COUNT 11.6 x10^3/uL; WHITE BLOOD COUNT 11.6 x10^3/uL (4.8-10.8)
[2017-01-01] MEDS: PANTOPRAZOLE 40 MG VIAL IVP SCH (06:05)
[2017-01-01] MEDS: SODIUM CHLORIDE FLUSH 0.9% 10 ML SYRINGE IVP SCH ×2 (06:06→14:25)
[2017-01-01 06:07] LABS: ALBUMIN/GLOBULIN RATIO 1.1 (1.0-2.2); BILIRUBIN,TOTAL 0.8 mg/dL (0.2-1.0); CALCIUM 9.3 mg/dL (8.5-10.3); CREATININE 0.8 mg/dL (0.4-1.0); POTASSIUM 3.5 mmol/L (3.5-5.0)
[2017-01-01] MEDS: LEVOTHYROXINE 125 MCG TABLET PO SCH (06:07)
[2017-01-01] MEDS: POLYETHYLENE GLYCOL 3350 17 GM PACKET PO SCH (08:04)
[2017-01-01] MEDS: SODIUM CHLORIDE FLUSH 0.9% 10 ML SYRINGE IVP PRN ×2 (08:50→08:52)
[2017-01-01] MEDS: amLODIPine 5 MG TABLET PO SCH (08:50)
[2017-01-01] MEDS: ATENOLOL 25 MG TABLET PO SCH (08:50)
[2017-01-01] MEDS: POTASSIUM CHLORIDE 10 MEQ CAPSULE PO SCH (08:50)
[2017-01-01] MEDS: FUROSEMIDE 40 MG/4 ML VIAL IVP SCH (08:50)
[2017-01-01] MEDS: CHOLECALCIFEROL 1,000 UNIT TABLET PO SCH (08:50)
[2017-01-01] MEDS: AZITHROMYCIN 250 MG TABLET PO SCH (08:50)
--- NOTE | 2017-01-01 13:30 | Discharge Plan ---
Discharge Plan Disposition: 01 Home, Self Care Condition: Stable Prescriptions: Lactobacillus Acidophilus [Probiotic Acidophilus] 1.5 mg PO BID #30 capsule Azithromycin [Zithromax] 250 mg PO DAILY #2 tablet Diet: Regular Activity Restrictions: Activity as Tolerated Shower Restrictions: No Driving Restrictions: Yes (no driving) Additional Instructions or Follow Up instructions: You were admitted to the hospital because of abdominal pain. We managed you by changing your diet, hydrating you with IV fluids, and giving you pain and nausea medicine. The abdominal pain has improved with just simple measures. We think that some of the pain is due to the radiation therapy you're getting. You also being treated for pneumonia. We will be discharging with 2 more days of oral antibiotics. I would like you to go home on probiotics to help you with the diarrhea you were experiencing from the antibiotics. Please follow up with your oncologist and radiation therapist. Let them know that you're in the hospital. The only other issue we found was that of low thyroid. You may not be absorbing the medicine very well right now because of your ongoing treatment. Please make sure you take the thyroid medicine on an empty stomach. Have your primary care provider check the levels in 4 weeks. If they are still low, you will need an increase in your medication dose. No Smoking: If you smoke, Please STOP! Call for help.
[2017-01-01 16:06] VITALS: BP 113/58
--- NOTE | 2017-01-21 00:06 | DISCHARGE SUMMARY ---
DATE OF ADMISSION: 12/30/2016 DATE OF DISCHARGE: 01/01/2017 DISCHARGE DIAGNOSES 1. Epigastric abdominal pain. 2. Lactic acidosis. 3. Hypokalemia. 4. Pneumonia. 5. Hypothyroidism. 6. Surgical wound nonhealing. 7. Chronic congestive heart failure. 8. Hypertension. DISCHARGE MEDICATIONS 1. Albuterol ProAir inhaler 2 puffs every 6 hours as needed. 2. Atenolol 25 mg p.o. b.i.d. 3. Lasix 40 mg daily. 4. Iron tablet 15 mg p.o. b.i.d. 5. Potassium 10 mEq daily. 6. Lisinopril 5 mg daily. 7. Nitroglycerin sublingual 0.4 mg p.r.n. 8. Norvasc 5 mg tablets 2 tablets daily. 9. Oxycodone 5 mg tablet 1-2 tablets every 6 hours as needed. 10. Levothyroxine 125 mcg daily. 11. Vitamin D 2000 units daily. 12. Lactobacillus capsule b.i.d. 13. Azithromycin 250 mg p.o. daily. PRINCIPAL PROCEDURES 1. Chest x-ray with small right basilar airspace disease due to atelectasis, aspiration, or pneumonia , with a small right-sided pleural effusion. 2. Abdomen and pelvis CT with moderate diverticulosis of the distal left sigmoid colon without inflam matory change. No demonstrated cholelithiasis. Remainder of abdomen and pelvis show no acute process or change from November 2016. She has a small to moderate right pleural effusion, new from prior study. C alcified pleural plaque, right lung base. Heart moderately enlarged. Mild to moderate left renal dale ical atrophy. Benign-appearing cyst, right kidney. 3. Second chest x-ray with cardiomegaly and pulmonary cephalization and trace bilateral pleural effus ions. 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 [facility] for epigastric abdominal pain for 4 days with the pain getting gradually worse. One epi sode of nausea and vomiting, no hematemesis, loose stool but no diarrhea. The epigastric pain is nonr adiating, sharp on a scale of 8-10. A CT of the abdomen was done 1 month ago for staging of her scalp angiosarcoma. She had fatty infiltration of the liver but no metastatic disease. In comparison to th at CT, a CT in the emergency room had a right pleural effusion and small infiltrate. In addition to evaluation for the epigastric abdominal pain in the emergency room, the patient had la b studies that showed a glucose that was 290, lactic acidosis, ketones in the urine, and a potassium of 2.9. Her pH was normal, but lactic acid was high. She was placed in observation overnight. Treatment consisted of simple IV hydration and occasional pa in medicine. She really did not eat very much. With 0.9 normal saline hydration, the patient's epigas tric abdominal pain essentially resolved overnight. Lactic acidosis went away. Lactic acidosis is att ributed to possibly her uncontrolled diabetes. She is not on metformin. She was not felt to be septic . Of note, her TSH was 7.23. She may have malabsorption of her Synthroid, or not taking it the correct way. We have asked her to please take Synthroid an empty stomach and recheck her TSH in 4-6 weeks wit h her primary care provider and see if she needs her Synthroid adjusted. Her right pleural effusion was unclear in its etiology, in that it was not necessarily associated wit h pneumonia that we could see. She had no coughing, no fever, no elevated white cell count. She was t reated initially for pneumonia and received IV antibiotics, but that was just transitioned to azithro mycin 250 mg p.o. daily for 2 more doses. She may need to be followed for the pleural effusions, sinc e it may be related to her angiosarcoma and not pneumonia. We had the MAC nurse come see her for her nonhealing surgical scalp wound. Recommendations were made, and she will be seen in the outpatient se tting. Hypokalemia was supplemented. She is felt to have chronic congestive heart failure with a slightly elevated BNP, and she received 1 dose of IV Lasix after being hydrated. It is going to be a balancing act. Hypertension remained stable. No medication changes needed. PHYSICAL EXAMINATION: She is discharged in stable condition with a temperature of 36.6, heart rate 68 , blood pressure 113/58, respirations 16, and 95% on room air. She was able to ambulate in her room a nd sit up to the edge of her bed without any difficulty. She only needed room air to ambulate without any increased oxygen need. She was irregularly irregular. Mild to moderate reduced left lung sounds on the bases; but no crackles, rhonchi, wheezing, or increased respiratory effort. She had an occasio nal cough during her stay with us, and seemed weak and nonproductive. She complained of weakness and had a shuffling gait. No edema. Greater than 30 minutes was spent coordinating discharge. JOB #: [id number] EXT JOB #:[id number]
== END 2017-01-01 16:30 | disposition home or self-care (01) | DRG 391 ==
LOC: EDUNIT# → SUPCPDRO 05:39 → ED 05:39 → MS2 09:08
PROVIDERS: ADMIT Nurse Practitioner Gerontology; ATTEND Specialist
DX: R10.13 Epigastric pain (principal); J18.1 Lobar pneumonia, unspecified organism; J44.0 Chronic obstructive pulmonary disease with (acute) lower respiratory infection; E87.2 Acidosis; Z79.01 Long term (current) use of anticoagulants; C49.0 Malignant neoplasm of connective and soft tissue of head, face and neck; J90 Pleural effusion, not elsewhere classified; E87.6 Hypokalemia; I11.0 Hypertensive heart disease with heart failure; I50.9 Heart failure, unspecified; E03.9 Hypothyroidism, unspecified; T81.89XA Other complications of procedures, not elsewhere classified, initial encounter; Y83.8 Other surgical procedures as the cause of abnormal reaction of the patient, or of later complication, without mention of misadventure at the time of the procedure; I48.91 Unspecified atrial fibrillation; E11.65 Type 2 diabetes mellitus with hyperglycemia; Z96.659 Presence of unspecified artificial knee joint; Z85.850 Personal history of malignant neoplasm of thyroid; Z95.1 Presence of aortocoronary bypass graft; Z90.49 Acquired absence of other specified parts of digestive tract
CPT/HCPCS: 36415; 36600; 71010; 71020; 74177; 80053; 81001; 81003; 82009; 82803; 83036; 83605; 83690; 83735; 83880; 84443; 84484; 85025; 85610; 87086; 93005; 94640; 96365; 99284; 99285

== ENCOUNTER 2017-01-08 20:37 | Outpatient (CLI) | payer MEDICARE, OTHER ==
[2017-01-08 19:12] LABS: BASOPHILS % (AUTO) 0.5 %; EOSINOPHILS # (AUTO) 0.9 10^3/uL (0.0-0.7); EOSINOPHILS % (AUTO) 10.8 %; HCT - HEMATOCRIT 40.7 % (37.0-47.0); HGB - HEMOGLOBIN 13.2 g/dL (12.0-16.0); LYMPHOCYTES # (AUTO) 2.2 10^3/uL (1.5-3.5); LYMPHOCYTES % (AUTO) 26.9 %; MEAN CORPUSCULAR HEMOGLOBIN 30.1 pg (27.0-31.0); MEAN CORPUSCULAR HGB CONC 32.5 g/dL (32.0-36.0); MEAN CORPUSCULAR VOLUME 92.6 fL (81.0-99.0); MONOCYTES # (AUTO) 0.5 10^3/uL (0.0-1.0); NEUTROPHILS # (AUTO) 4.5 10^3/uL (1.5-6.6); NEUTROPHILS % (AUTO) 55.8 %; RED CELL DISTRIBUTION WIDTH 15.3 % (12.0-15.0); UNCORRECTED WHITE BLOOD COUNT 8.1 x10^3/uL; WHITE BLOOD COUNT 8.1 x10^3/uL (4.8-10.8)
[2017-01-08 19:39] LABS: ALBUMIN/GLOBULIN RATIO 1.4 (1.0-2.2); BUN - BLOOD UREA NITROGEN 22 mg/dL (6-20); CALCIUM 9.7 mg/dL (8.5-10.3); CARBON DIOXIDE - CO2 28 mmol/L (21-32); CHLORIDE 101 mmol/L (101-111); CHOL/HDL RATIO 2.3 (<4.4); CHOLESTEROL 143 mg/dL; CREATININE 0.9 mg/dL (0.4-1.0); GFR - MDRD 61 (>89); GLUCOSE 98 mg/dL (70-100); HDL CHOLESTEROL 63 mg/dL; POTASSIUM 3.9 mmol/L (3.5-5.0); SODIUM 138 mmol/L (135-145); TOTAL PROTEIN 7.6 g/dL (6.7-8.2); TRIGLYCERIDES 87 mg/dL; VLDL CHOLESTEROL 17 mg/dL
[2017-01-08 19:56] LABS: HEMOGLOBIN A1C 0.58 g/dL
[2017-01-08 20:00] LABS: THYROID STIMULATING HORMONE 12.45 uIU/mL (0.34-5.60)
== END 2017-01-08 20:38 | disposition home or self-care (01) ==
LOC: LAB.WCP 20:37
PROVIDERS: ATTEND Physician Assistant Medical
DX: R73.01 Impaired fasting glucose (principal); I25.10 Atherosclerotic heart disease of native coronary artery without angina pectoris; E03.9 Hypothyroidism, unspecified; I10 Essential (primary) hypertension
CPT/HCPCS: 36415; 80053; 80061; 83036; 84439; 84443; 85025

== ENCOUNTER 2017-01-10 16:45 | Outpatient (CLI) | payer MEDICARE, OTHER | END 2017-01-10 16:46 | disposition home or self-care (01) | LOC: LAB.R 16:45 | PROVIDERS: ATTEND Physician Assistant Medical | DX: N39.0 Urinary tract infection, site not specified (principal) | CPT/HCPCS: 87077; 87086 ==

== ENCOUNTER 2017-04-27 02:08 | Outpatient (CLI) | payer MEDICARE, OTHER | END 2017-04-27 02:09 | disposition EMS.NT | LOC: EMS 02:08 | PROVIDERS: ATTEND Surgery | DX: Z03.89 Encounter for observation for other suspected diseases and conditions ruled out (principal); W18.30XA Fall on same level, unspecified, initial encounter; Y92.009 Unspecified place in unspecified non-institutional (private) residence as the place of occurrence of the external cause ==

== ENCOUNTER 2017-05-14 18:02 | Outpatient (CLI) | payer MEDICARE, OTHER | END 2017-05-14 18:03 | disposition home or self-care (01) | LOC: EMS 18:02 | PROVIDERS: ATTEND Surgery | DX: Z03.89 Encounter for observation for other suspected diseases and conditions ruled out (principal) ==